=== PATIENT | male | born 1980 | race Two or more races ===

== ENCOUNTER 2019-09-06 09:58 | Emergency (ER) | payer MEDICAID ==
[~2019-09-06] VITALS: Ht 172.7 cm; Wt 74.8 kg
[2019-09-06 10:40] VITALS: BP 115/86
== END 2019-09-06 11:38 | disposition home or self-care (01) ==
LOC: EDSEX 09:58 → EDBD 09:58 → ER 10:04
DX: J06.9 Acute upper respiratory infection, unspecified (principal)
CPT/HCPCS: 71046